=== PATIENT | female | born 1945 | race Hispanic/Latino ===

== ENCOUNTER 2017-12-13 10:47 | Day surgery (SDC) | payer MEDICARE ==
[2017-12-13] MEDS ORDERED: IOPIDINE ONE (11:05)
[2017-12-13] MEDS ORDERED: MYDRIACYL ONE (11:05)
[2017-12-13] MEDS ORDERED: NEOFRIN ONE (11:06)
[2017-12-13] MEDS ORDERED: IOPIDINE OS ONE ×2 (11:28→12:16)
[2017-12-13] MEDS ORDERED: NEOFRIN OS ONE (11:28)
[2017-12-13] MEDS ORDERED: MYDRIACYL OS ONE (11:28)
[2017-12-13 12:31] VITALS: BP 130/86
== END 2017-12-13 12:18 | disposition home or self-care (01) ==
LOC: OR 10:47
PROVIDERS: ATTEND Specialist
DX: H26.492 Other secondary cataract, left eye (principal); K21.9 Gastro-esophageal reflux disease without esophagitis; I10 Essential (primary) hypertension

== ENCOUNTER 2019-02-20 11:20 | Day surgery (SDC) | payer MEDICARE ==
[~2019-02-20 11:20] MED LIST: IOPIDINE OD ONE; IOPIDINE ONE; MYDRIACYL OD ONE; MYDRIACYL ONE; NEOFRIN OD ONE; NEOFRIN ONE
[2019-02-20] MEDS ORDERED: IOPIDINE OD ONE (11:40)
[2019-02-20] MEDS ORDERED: MYDRIACYL OD ONE (11:40)
[2019-02-20] MEDS ORDERED: NEOFRIN OD ONE (11:40)
[2019-02-20 12:45] VITALS: BP 141/84
== END 2019-02-20 11:21 | disposition home or self-care (01) ==
LOC: OR 11:20
PROVIDERS: ATTEND Specialist
DX: H26.491 Other secondary cataract, right eye (principal); I10 Essential (primary) hypertension; K21.9 Gastro-esophageal reflux disease without esophagitis; F32.9 Major depressive disorder, single episode, unspecified; F41.9 Anxiety disorder, unspecified; Z98.890 Other specified postprocedural states; Z88.0 Allergy status to penicillin; Z90.710 Acquired absence of both cervix and uterus; Z87.442 Personal history of urinary calculi; Z98.42 Cataract extraction status, left eye; Z98.41 Cataract extraction status, right eye; Z79.899 Other long term (current) drug therapy